=== PATIENT | female | born 1990 | race Caucasian/White ===

== ENCOUNTER → 2016-10-27 | Outpatient (CLI) | payer OTHER ==
[~2016-10-27] MED LIST: ARMO250T5 PO; BCPILLS PO; MULTTAB58 PO
--- NOTE | 2016-10-27 15:54 | DIAGNOSTIC IMAGING REPORT ---
FUSION CT SINUSES W/O HISTORY: J32.9 Chronic sinusitis in 2 weeks; post-treatment ct scan TECHNIQUE: Multiaxial CT images of the sinuses were performed reformatted in the coronal plane without contrast. Fusion CT protocol was also obtained. COMPARISON STUDY: None. FINDINGS: The frontal sinuses and sphenoid sinuses are clear. Mild mucosal thickening within the ethmoid air cells and maxillary sinuses. 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 The mastoid air cells are clear. No fluid levels within the paranasal sinuses. Postoperative changes consistent with bilateral maxillary antrostomies and right middle turbinectomy. The orbital floors and lamina papyracea are intact. Bilateral maxillary antrostomies are widely patent. Minimal S-shaped deviation of the nasal septum. The orbits and visualized brain parenchyma are unremarkable. IMPRESSION: 1. Mild mucosal thickening within the ethmoid air cells and maxillary sinuses. No fluid levels identified. 2. Postoperative changes as described above. Electronically signed by: Dougie Sanches M.D. 10/27/2016 3:52 PM Dictated Date/Time: 10/27/2016 3:47 PM
== END | disposition home or self-care (01) ==
LOC: C.CTS 15:38
PROVIDERS: ATTEND Physician Assistant
DX: J32.9 Chronic sinusitis, unspecified (principal)

== ENCOUNTER → 2016-11-06 | Outpatient (CLI) | payer OTHER ==
[~2016-11-06] VITALS: Ht 157.5 cm; Wt 69.1 kg
[2016-11-06 15:03] VITALS: BP 120/76; PULSE 76; Ht 157.5 cm; Wt 69.1 kg
== END | disposition home or self-care (01) ==
LOC: C.NEUR 13:35
PROVIDERS: ATTEND Internal Medicine Pulmonary Disease
DX: G47.419 Narcolepsy without cataplexy (principal); J30.9 Allergic rhinitis, unspecified